=== PATIENT | male | born 1950 ===

== ENCOUNTER 2018-03-10 13:31 | Emergency (ER) | payer OTHER ==
[~2018-03-10] VITALS: Ht 185.4 cm; Wt 108.9 kg
[2018-03-10] MEDS ORDERED: TENORMIN25 MG PO (15:00)
[2018-03-10] MEDS ORDERED: HYDRALAZINE HCL10 MG PO (15:00)
[2018-03-10] MEDS ORDERED: ZESTRIL5 MG PO (15:00)
[2018-03-10] MEDS ORDERED: GLUMETZA500 MG PO (15:01)
== END 2018-03-10 20:50 | disposition home or self-care (01) ==
LOC: ER 13:31
DX: I16.0 Hypertensive urgency (principal); I10 Essential (primary) hypertension